=== PATIENT | male | born 1995 | race Caucasian/White ===

== ENCOUNTER 2017-01-15 22:23 | Emergency (ER) | payer BC, OTHER ==
[~2017-01-15] VITALS: Ht 170.2 cm; Wt 83.6 kg
[2017-01-15 22:24] VITALS: Ht 170.2 cm; Wt 83.6 kg
[2017-01-15 23:02] LABS: BASO % 0.1 %; BASO ABS # 0.01 K/uL (0-0.2); COMPLETE YES; HEMATOCRIT 46.5 % (42-52); IG% 0.2 %; LYMPH % 4.9 %; LYMPH ABS # 0.44 K/uL (1.2-3.4); MEAN CELL VOLUME 87.7 fL (80-100); MEAN CORPUSCULAR HEMOGLOBIN 31.1 pg (25-34); MEAN CORPUSCULAR HGB CONC 35.5 g/dl (32-36); MEAN PLATELET VOLUME 11.8 fL (7.4-10.4); MONO % 6.7 %; NEUT % 88.1 %; PLATELET COUNT 189 K/uL (130-400); WHITE BLOOD COUNT 8.98 K/uL (4.8-10.8)
[2017-01-15] MEDS ORDERED: ONDANSETRON INJ 2 MG/ML 2 ML VIAL IV STA (23:05)
[2017-01-15] MEDS ORDERED: KETOROLAC TROMETHAMINE 30 MG/ML VIAL IV STA (23:05)
[2017-01-15] MEDS ORDERED: SODIUM CHLORIDE 0.9% 1000ML 1,000 ML IV STA (23:05)
[2017-01-15] MEDS ORDERED: ONDANSETRON HOME PACK 4MG OD TAB PO ONE (23:15)
[2017-01-15 23:25] LABS: ALB/GLOB RATIO 1.1 (0.9-2); BUN/CREATININE RATIO 14.9 (10-20); CALCIUM 8.8 mg/dl (8.5-10.1); CREATININE 1.2 mg/dl (0.60-1.40); POTASSIUM 3.7 mmol/L (3.5-5.1)
[2017-01-15 23:39] LABS: URINE APPEARANCE CLEAR (CLEAR); URINE BILIRUBIN NEG (NEG); URINE COLOR YELLOW; URINE NITRITE NEG (NEG); URINE PH 6.5 (4.5-7.5); URINE SPECIFIC GRAVITY 1.027 (1.000-1.030); UROBILINOGEN NEG (NEG); ZZUR CULT IF INDIC CLEAN CATCH NO
--- NOTE | 2017-01-15 23:40 | EMERGENCY ROOM VISIT NOTE ---
History Report prepared by Juan Daniel: Anna Valiente Under the Supervision of: Dr. Kamaljit Roche M.D. First contact with patient: 23:02 Chief Complaint: VOMITING Stated Complaint: SEVERE ABD PAIN,DIARRHEA,VOMITING,NAUSEA History of Present Illness The patient is a 21 year old male who presents to the Emergency Room with complaints of intermittent vomiting beginning [employer]. He was participating in the stands at [employer] from midnight yesterday until 2pm this afternoon. He suddenly developed nausea, vomiting, diarrhea, and epigastric abdominal pain. He describes his pain as dull and rates it as a 5/10 in severity. It is worse with vomiting. He has never experienced pain like this before. The patient denies any history of abdominal surgeries. Source of History: patient Onset: [employer] Position: abdomen Symptom Intensity: 5/10 Quality: dull Timing: intermittent Modifying Factors (Worsening): other (vomiting) Associated Symptoms: + abdominal pain, + diarrhea, + nausea, + vomiting Review of Systems See HPI for pertinent positives & negatives. A total of 10 systems reviewed and were otherwise negative. Past Medical & Surgical Medical Problems: (1) No significant active problems Family History No pertinent history stated. Social History Smoking Status: Never Smoker Housing Status: lives with roommate Occupation Status: [employer] student Current/Historical Medications Scheduled Ondasetron Odt (Zofran Odt), 4 MG SL Q6H Allergies Coded Allergies: Acetaminophen (Verified Allergy, Intermediate, see comment, 01/15/17) accidental overdose 2 years ago. had allergic reaction to overdose. told to avoid Tylenol. Physical Exam Vital Signs Date Time Temp Pulse Resp B/P Pulse Ox O2 Delivery O2 Flow Rate FiO2 01/15/17 23:58 93 16 125/64 97 Room Air 01/15/17 22:24 37.8 112 20 126/74 96 Room Air Physical Exam GENERAL: Patient is a healthy-appearing well-nourished 21 year old male. HEAD: Normocephalic atraumatic EYES: Ocular movements intact pupils equal and react to light OROPHARYNX mucous membranes are moist no exudates present no erythema or edema present NECK: Supple no nuchal rigidity CHEST: Good equal expansion LUNGS: Clear and equal to auscultation CARDIAC: Normal S1 and S2 ABDOMEN: Soft nontender no guarding BACK: No CVA tenderness EXTREMITIES: No pain upon palpation normal muscle strength in all groups no clubbing cyanosis or edema NEURO: Patient is following commands is answering questions appropriately. Alert and oriented x3 Cranial Nerves 2-12 grossly intact Medical Decision & Procedures ER Provider Diagnostic Interpretation: One view chest x-ray as interpreted by myself reveals no evidence of pneumonia, congestion, or pneumothorax. Three view abdominal x-ray as interpreted by myself reveals no evidence of SBO or free air. Bowel gas pattern goes all the way down to the rectum. Laboratory Results 01/15/17 22:50 Red Blood Count 5.30, Mean Corpuscular Volume 87.7, Mean Corpuscular Hemoglobin 31.1, Mean Corpuscular Hemoglobin Concent 35.5, Mean Platelet Volume 11.8, Neutrophils (%) (Auto) 88.1, Lymphocytes (%) (Auto) 4.9, Monocytes (%) (Auto) 6.7, Eosinophils (%) (Auto) 0.0, Basophils (%) (Auto) 0.1, Neutrophils # (Auto) 7.91, Lymphocytes # (Auto) 0.44, Monocytes # (Auto) 0.60, Eosinophils # (Auto) 0.00, Basophils # (Auto) 0.01 01/15/17 22:50 Test 01/15/17 22:45 01/15/17 22:50 Urine Color YELLOW Urine Appearance CLEAR (CLEAR) Urine pH 6.5 (4.5-7.5) Urine Specific [place] 1.027 (1.000-1.030) Urine Protein NEG (NEG) Urine Glucose (UA) NEG (NEG) Urine Ketones NEG (NEG) Urine Occult Blood NEG (NEG) Urine Nitrite NEG (NEG) Urine Bilirubin NEG (NEG) Urine Urobilinogen NEG (NEG) Urine Leukocyte Esterase NEG (NEG) White Blood Count 8.98 K/uL (4.8-10.8) Red Blood Count 5.30 M/uL (4.7-6.1) Hemoglobin 16.5 g/dL (14.0-18.0) Hematocrit 46.5 % (42-52) Mean Corpuscular Volume 87.7 fL (80-100) Mean Corpuscular Hemoglobin 31.1 pg (25-34) Mean Corpuscular Hemoglobin Concent 35.5 g/dl (32-36) Platelet Count 189 K/uL (130-400) Mean Platelet Volume 11.8 fL (7.4-10.4) Neutrophils (%) (Auto) 88.1 % Lymphocytes (%) (Auto) 4.9 % Monocytes (%) (Auto) 6.7 % Eosinophils (%) (Auto) 0.0 % Basophils (%) (Auto) 0.1 % Neutrophils # (Auto) 7.91 K/uL (1.4-6.5) Lymphocytes # (Auto) 0.44 K/uL (1.2-3.4) Monocytes # (Auto) 0.60 K/uL (0.11-0.59) Eosinophils # (Auto) 0.00 K/uL (0-0.5) Basophils # (Auto) 0.01 K/uL (0-0.2) RDW Standard Deviation 39.7 fL (36.4-46.3) RDW Coefficient of Variation 12.5 % (11.5-14.5) Immature Granulocyte % (Auto) 0.2 % Immature Granulocyte # (Auto) 0.02 K/uL (0.00-0.02) Anion Gap 9.0 mmol/L (3-11) Est Creatinine Clear Calc Drug Dose 101.5 ml/min Estimated GFR () 100.3 Estimated GFR (Non- 86.5 BUN/Creatinine Ratio 14.9 (10-20) Calcium Level 8.8 mg/dl (8.5-10.1) Total Bilirubin 0.6 mg/dl (0.2-1) Aspartate Amino Transf (AST/SGOT) 16 U/L (15-37) Alanine Aminotransferase (ALT/SGPT) 18 U/L (12-78) Alkaline Phosphatase 36 U/L (45-117) Total Protein 7.2 gm/dl (6.4-8.2) Albumin 3.7 gm/dl (3.4-5.0) Globulin 3.5 gm/dl (2.5-4.0) Albumin/Globulin Ratio 1.1 (0.9-2) Lipase 82 U/L (73-393) Chemistry Specimen Hemolysis Labs reviewed by ED physician. Medications Administered Medications (Trade) Dose Ordered Sig/Xenia Route Start Time Stop Time Status Last Admin Dose Admin Sodium Chloride (Nss 1000ml) 1,000 ml @ 999 mls/hr Q1H1M STAT IV 01/15/17 23:05 01/16/17 00:05 01/15/17 23:15 999 MLS/HR Ondansetron HCl (ZOFRAN ODT 4MG Home Pack) 1 homepack UD ONCE PO 01/15/17 23:15 01/15/17 23:16 DC 01/15/17 23:58 1 HOMEPACK Ondansetron HCl (Zofran Inj) 4 mg NOW STAT IV 01/15/17 23:05 01/15/17 23:07 DC 01/15/17 23:13 4 MG Ketorolac Tromethamine (Toradol Inj) 30 mg NOW STAT IV 01/15/17 23:05 01/15/17 23:07 DC 01/15/17 23:14 30 MG ED Course 2302: Past medical records reviewed. The patient was evaluated in room B9. A complete history and physical examination was performed. 2305: Toradol 30 mg IV, Zofran 4 mg IV, NSS 1000 ml @ 999 mls/hr IV 2315: Zofran 4 mg PO homepack 2334: I reassessed the patient at this time. He is feeling better and resting comfortably. I discussed the results and treatment plan with the patient. I answered all pertaining questions that he had. He expressed understanding and verbalized agreement. The patient will be discharged home. Medical Decision Differential diagnosis: Etiologies such as gastroenteritis, food borne illness, infections, appendicitis , diverticulitis, inflammatory bowel disease, obstruction, GI bleed, biliary pathology, as well as others were entertained. This is a 21-year-old male who presents emergency department complaining of vomiting and diarrhea that has been ongoing for the past week and. I will note that the patient does not have an elevation in his white blood count. Serial abdominal examinations were performed on the patient in the emergency department and at no time did the patient exhibit a surgical abdomen. The patient was able to provide a stool sample. He was given an IV with normal saline bolus along with Zofran and Toradol. Repeat examination revealed much improvement in the patient's exam. The patient was able to tolerate oral Gatorade here in the emergency department and I will send him home on Zofran Pending stool culture results. Patient was in agreement with the treatment plan. Impression Primary Impression: Gastroenteritis Scribe Attestation The scribe's documentation has been prepared under my direction and personally reviewed by me in its entirety. I confirm that the note above accurately reflects all work, treatment, procedures, and medical decision making performed by me. Departure Information Dispostion Home / Self-Care Prescriptions Ondasetron Odt (ZOFRAN ODT) 4 Mg Tab 4 MG SL Q6H for Nausea, #6 TAB Prov: Kamaljit Roche MD 01/15/17 Referrals No Doctor, Assigned (PCP) [facility] Forms HOME CARE DOCUMENTATION FORM, IMPORTANT VISIT INFORMATION, School Instructions, Work Instructions Patient Instructions ED Gastroenteritis Report Pend, ED Gastroenteritis Viral, My [facility] Additional Instructions Use probiotic yogurt for diarrhea You have been examined and treated today on an emergency basis only. This is not a substitute for, or an effort to provide, complete comprehensive medical care. It is impossible to recognize and treat all injuries or illnesses in a single emergency department visit. It is therefore important that you follow up closely with [facility]. Call as soon as possible for an appointment. Thank you for your time and consideration. I look forward to speaking with you again soon. Please don't hesitate to call us if you have any questions.
[2017-01-15] MEDS ORDERED: ONDA4TAB10 SL (23:43)
[2017-01-15 23:46] LABS: MANUAL MICROSCOPIC REQUIRED? NO; REVIEW REQ? NO
[2017-01-16 00:18] VITALS: BP 125/64; PULSE 93; TEMP 36.7; O2SAT 97
--- NOTE | 2017-01-16 06:44 | DIAGNOSTIC IMAGING REPORT ---
PA CHEST RADIOGRAPH AND UPRIGHT AND SUPINE AP RADIOGRAPHS OF THE ABDOMEN CLINICAL HISTORY: Epigastric pain. COMPARISON STUDY: No previous studies for comparison. FINDINGS: Lung volumes are normal. Lungs are clear. There is no pneumothorax or pleural effusion. Cardiac size is normal. Mediastinal contours are normal. There is no free air. The bowel gas pattern is normal. IMPRESSION: 1. No free air or evidence of bowel obstruction. 2. No acute cardiopulmonary findings. Electronically signed by: Cain Au M.D. 01/16/2017 6:43 AM Dictated Date/Time: 01/16/2017 6:42 AM
== END 2017-01-16 00:22 | disposition home or self-care (01) ==
LOC: C.EDB 22:24
DX: K52.9 Noninfective gastroenteritis and colitis, unspecified (principal)